=== PATIENT | female | born 1980 | race Caucasian/White ===

== ENCOUNTER 2017-10-13 10:09 | Outpatient (CLI) | payer OTHER ==
[2017-10-13] MEDS ORDERED: GADOPENTETATE DIMEGLUMINE 15 ML VIAL IV ONE (11:04)
== END 2017-10-13 19:10 | disposition home or self-care (01) ==
LOC: SMI 10:09
PROVIDERS: ATTEND Psychiatry & Neurology Neurology with Special Qualifications in Child Neurology
DX: G43.709 Chronic migraine without aura, not intractable, without status migrainosus (principal)
CPT/HCPCS: 70553; A9579

== ENCOUNTER 2017-11-11 15:05 | Outpatient (CLI) | payer OTHER | END 2017-11-11 19:10 | disposition home or self-care (01) | LOC: SUS 15:05 | PROVIDERS: ATTEND Otolaryngology | DX: R22.1 Localized swelling, mass and lump, neck (principal) | CPT/HCPCS: 76536-TC ==